=== PATIENT | female | born 1990 | race Two or more races ===

== ENCOUNTER 2024-08-18 14:31 | Emergency (ER) | payer OTHER ==
[~2024-08-18] VITALS: Ht 162.6 cm; Wt 57.2 kg
[2024-08-18] MEDS ORDERED: KETO10TA2 PO (18:31)
== END 2024-08-18 18:35 | disposition home or self-care (01) ==
LOC: ER 14:34
DX: M77.8 Other enthesopathies, not elsewhere classified (principal)